=== PATIENT | male | born 1960 | race African-American/Black ===

== ENCOUNTER 2018-08-03 08:28 | Emergency (ER) | payer BC ==
[~2018-08-03] VITALS: Ht 180.3 cm; Wt 81.8 kg
[2018-08-03 10:47] VITALS: BP 133/85
== END 2018-08-03 10:48 | disposition home or self-care (01) ==
LOC: ER 09:03
DX: H60.91 Unspecified otitis externa, right ear (principal); K02.9 Dental caries, unspecified; F12.10 Cannabis abuse, uncomplicated
CPT/HCPCS: 99283